=== PATIENT | male | born 1960 | race Caucasian/White ===

== ENCOUNTER 2024-07-28 12:43 | Emergency (ER) | payer BC, SELFPAY ==
[2024-07-28 12:44] VITALS: BP 146/79
[2024-07-28 13:17] LABS: COVID-19 Antigen Negative (Negative)
[2024-07-28] MEDS: NSS 500 IV (14:54)
[2024-07-28] MEDS: TYLENOL 650 MG PO (15:00)
[2024-07-28 15:16] LABS: % Basophils 0.9 % (0-2); % Eosinophils 0.3 % (0-6); % Immature Granulocytes 0.3 % (0-0.5); % Lymphocytes 21.7 % (20.5-51.1); % Monocytes 15.9 % (1.7-9.3); % Neutrophils 60.9 % (42.2-75.2); Absolute Lymphocytes 0.8 10^3/uL (1.2-3.4); Absolute Monocytes 0.6 10^3/uL (0.1-0.6); Absolute Neutrophils 2.1 10^3/uL (1.4-6.5); Hematocrit 40.3 % (39.0-52.0); Hemoglobin 13.5 g/dL (13.0-18.0); Mean Corp Hgb Conc. 33.5 g/dL (33.0-37.0); Mean Corpuscular Hgb 28.5 pg (27.0-31.0); Mean Platelet Volume 10.1 fL (7.4-10.4); Nucleated Red Blood Cells % 0 % (-); Platelet Count 176 10^3/uL (130-400); Red Blood Cell Count 4.74 10^6/uL (4.70-6.10); Red Cell Dist. Width 13.1 % (11.5-14.5); White Blood Cell Count 3.5 10^3/uL (4.8-10.8)
--- NOTE | 2024-07-28 15:24 | ED.GENMED ---
History of Present Illness
General
Chief Complaint: Cold/Flu/URI Symptoms
Source: patient
Exam Limitations: none
Time Seen by Provider: 07/28/24 14:04
Nursing documentation reviewed up to this point in time: agreed with
History of Present Illness
History of Present Illness:
64 y/o M wit h/o possible CVA int he past
poor historian
here with 3 days of illness, sore throat, cough, headache, diarrhea, fatigue
last dose tylenol this am
called pcp who sent him for eval
he is presuming he has the flu
no cp, sob, vomiting, focal weakness, syncope
he apparently appeared clammy in triage;
Past History
Past History
ED Past Medical History: HTN and Hypercholesterolemia
Social History
Tobacco: Vaping
Drug: Marijuana
Review of Systems
Review of Systems
Allergies reviewed?: Yes
All Other Systems: Not applicable
Phy Exam
Physical Exam
Physical Exam:
GENERAL: Alert , in no apparent distress nontoxic-appearing
EYE: pupils equal and reactive
NECK: Supple
ENT: b/l TM s clear, pharynx erythematous but no tonsillar hypertrophy or exudates
CARDIAC: Regular rate and rhythm, no edema
LUNGS: Clear breath sounds bilaterally, no acute respiratory distress, no wheezes/rales/rhonchi, occ cough
ABDOMEN: Soft, without focal tenderness, no r/g, no cvat, normal bowel sounds
NEUROLOGICAL: Alert and oriented, no focal neuro deficits
SKIN: Warm and dry, skin intact.
MUSCULOSKELETAL: No edema, well perfused.
PSYCH: Normal and appropriate interaction.
Course
Orders/Labs/Results
Orders:
Orders
07/28/24 12:52
COVID-19 Antigen Urgent
Source: Nasal Swab
Influenza A+B Rapid Molecular Urgent
FABIAN Source: Nasal Swab
Specimen Description:
07/28/24 14:48
0.9% Sodium Chloride 500 ml [Nss] 500 ml IV BOLUS
Acetaminophen [Tylenol] 650 mg PO NOW STA
CR Chest - 2 Views Urgent
Comment:
Reason For Exam: cough, flu
07/28/24 14:53
Complete Blood Count/With Diff Urgent
Comprehensive Metabolic Panel Urgent
Abnormal Lab Results
07/28/24
14:53
WBC 3.5 L 10^3/uL
(4.8-10.8)
Absolute Lymphs (auto) 0.8 L 10^3/uL
(1.2-3.4)
Monocytes % 15.9 H %
(1.7-9.3)
Glucose 100 H mg/dl
(70-99)
Calcium 8.3 L mg/dl
(8.4-10.2)
07/28/24 14:53
07/28/24 14:53
Vital Signs
Initial and Last Documented VS:
Initial Vital Signs
Temp Pulse Resp BP Pulse Ox
37.2 C 69 16 146/79 97
07/28/24 12:44 07/28/24 12:44 07/28/24 12:44 07/28/24 12:44 07/28/24 12:44
Last Documented Vital Signs
Temp Pulse Resp BP Pulse Ox
37.1 C 63 20 136/82 98
07/28/24 16:50 07/28/24 16:50 07/28/24 16:50 07/28/24 16:50 07/28/24 16:50
MDM/Problems Addressed
Differential Diagnosis Includes:
Influenza, pneumonia
MDM/Problems Addressed:
64-year-old male with a history of a tremor and a stutter, maybe a mini stroke previously presents for 3 days of URI symptoms suspected to be the flu. He was sent by his primary when he called them saying he was not feeling better. He apparently
was mildly sweaty in triage but had taken Tylenol prior to arrival. He is afebrile, nontoxic-appearing, in no distress. Complaining of sore throat, cough, body aches, headache, mild diarrhea. On exam he had no significant findings other than mild
rhonchi in his bases and no cough. His workup shows a mild leukopenia consistent with viral illness, his glucose was 100, his flu a was positive and his chest x-ray was independently reviewed by me and negative for pneumonia. He may have mild
atelectasis in his bases. Patient got a 500 cc bolus of fluids and feels much better. He would like to go home. He is outside the window of Tamiflu. Follow-up with his family doctor.
*Critical Care Note
Total Time (30-74mins, 75-104mins- exclusive of procedures): Not Applicable
ED Attending Note
-
Portions of this chart may have been created with voice recognition software.� Occasional wrong word or��sound alike� substitutions may have occurred due to the inherent limitations of voice recognition software.
Discharge Plan
Departure
Patient Disposition: Home (Routine Discharge)
Date of Disposition: 07/28/24
Time of Disposition: 16:18
Patient with high blood pressure during this ER visit?: No
Condition: Fair
Covid-19: Negative COVID-19
Discharge Problem:
Influenza A
Instructions: Flu in adults - Discharge instructions
Activity Restrictions/Additional Instructions:
you tested positive for the flu.
take tylneol every 6 hours as needed for fevers
drink fluids
stay hydrated
follow up with your doctor
return for: severe worsening sypmtoms, passing out, severe dehydration or any concerns.
Interventions
Interventions:
*Risk Screen - Suicide Last Done: 07/28/24 12:51
*General Assessment Last Done: 07/28/24 12:44
*Neglect/Abuse Screening Last Done: 07/28/24 12:44
*ED- Fall Risk Assessment Last Done: 07/28/24 16:03
*ED COVID-19 Vaccine History Last Done: 07/28/24 14:12
*Nursing Disposition Last Done: 07/28/24 16:57
ED- Pulmonary Assessment Last Done: 07/28/24 14:12
Discharge Date and Time
Print Language: URDU
[2024-07-28 15:32] LABS: ALT (SGPT) 36 U/L (0-50); AST (SGOT) 49 U/L (17-59); Albumin 3.9 g/dl (3.5-5.0); Alkaline Phosphatase 62 U/L (38-126); Blood Urea Nitrogen 19 mg/dl (9-20); Calcium 8.3 mg/dl (8.4-10.2); Carbon Dioxide 27 mmol/L (22-30); Chloride 99 mmol/L (98-107); Glucose 100 mg/dl (70-99); Potassium 4.2 mmol/L (3.5-5.1); Sodium 135 mmol/L (135-145); Total Bilirubin 0.7 mg/dl (0.2-1.3); Total Protein 6.5 g/dl (6.3-8.2); eGFR > 60.00
[2024-07-28 16:50] VITALS: BP 136/82
== END 2024-07-28 16:57 | disposition home or self-care (01) ==
LOC: EMR 12:43
PROVIDERS: Physician Assistant; Student in an Organized Health Care Education/Training Program; EMERGENCY PHYSICIAN Emergency Medicine; FAMILY PHYSICIAN Internal Medicine
DX: J10.1 Influenza due to other identified influenza virus with other respiratory manifestations (principal); Z11.52 Encounter for screening for COVID-19; I10 Essential (primary) hypertension; E78.00 Pure hypercholesterolemia, unspecified; F17.290 Nicotine dependence, other tobacco product, uncomplicated
CPT/HCPCS: 96360; 99284; 71046; 80053; 85025; 87502; 87811